=== PATIENT | male | born 1955 | race Caucasian/White ===

== ENCOUNTER 2024-05-08 17:51 | Inpatient (IN) ==
[2024-05-08] MEDS: ONDANSETRON INJ 2 MG/ML 2 ML VIAL IV STA ×2 (18:09→19:44)
[2024-05-08 18:29] LABS: Basophils # (auto) 0.06 K/uL (0.00-0.20); Basophils % (auto) 0.6 %; Eosinophils # (auto) 0.17 K/uL (0.00-0.50); Eosinophils % (auto) 1.6 %; Hematocrit (blood only) 47.1 % (42.0-52.0); Hemoglobin 16.3 g/dl (14.0-18.0); Immature Granulocytes # (auto) 0.02 K/uL (0.01-0.20); Immature Granulocytes % (auto) 0.2 %; Lymphocytes # (auto) 2.35 K/uL (1.20-3.40); Lymphocytes % (auto) 22.5 %; Mean Corpuscular Hemoglobin 29.4 pg (25.0-34.0); Mean Corpuscular Hgb Conc 34.6 g/dL (32.0-36.0); Mean Platelet Volume 9.8 fL (9.4-12.4); Monocytes # (auto) 1.41 K/uL (0.11-0.59); Monocytes % (auto) 13.5 %; Neutrophils # (auto) 6.43 K/uL (1.40-6.50); Neutrophils % (auto) 61.6 %; Platelet Count 196 K/uL (130-400); RDW Coefficient of Variation 12.2 % (11.5-14.5); RDW Standard Deviation 37.4 fL (36.4-46.3); Red Blood Count 5.54 M/uL (4.70-6.10); White Blood Count 10.44 K/ul (4.8-10.8)
[2024-05-08 18:46] LABS: Albumin Globulin Ratio 1.1 (0.9-2); Albumin Level 4.2 gm/dl (3.4-5.0); BUN Creatinine Ratio 9.1 (10-20); Calcium 9.5 mg/dl (8.6-10.3); Creatinine Clr Calc Pharmacy 45.6 ml/min; Est GFR (African American) 42.7 ml/min; Est GFR (Non-African American) 36.9 ml/min; Globulin 3.7 gm/dl (2.5-4.0); Potassium 4.4 mmol/L (3.5-5.1); Total Protein 7.9 gm/dl (6.0-8.3)
[2024-05-08 18:57] LABS: Appearance Urine Clear (Clear); Bacteria Urine Automated None Seen (None Seen); Bilirubin Urine Negative (Negative); Blood Urine 3+ (Negative); Cast Urine Automated 0-2 /lpf (0-2); Color Urine Yellow; Epithelial Cell Urine Auto 0-2 /hpf (0-2); Glucose Urine UA Negative (Negative); Ketones Urine Negative (Negative); Leukocyte Esterase Urine 1+ (Negative); Nitrite Urine Negative (Negative); Protein Urine 1+ (Negative); RBC Urine Automated >20 /hpf (0-2); Specific Gravity Urine 1.016 (1.000-1.030); Urobilinogen Urine Negative (Negative); WBC Urine Automated 0-5 /hpf (0-5)
[2024-05-08] MEDS: HYDROmorphone INJ 0.5 MG/0.5 ML SYR IV STA (19:41)
[2024-05-08] MEDS: SODIUM CHLORIDE 0.9% 1,000 ML IV ONE (19:41)
[2024-05-08] MEDS: KETOROLAC TROMETHAMINE 15 MG/ML VIAL IV ONE (19:41)
[2024-05-08] MEDS: TAMSULOSIN HCL 0.4 MG CAP PO ONE (19:44)
--- NOTE | 2024-05-08 20:04 | Urology Consultation ---
Date of Consultation May 08, 2024 Assessment & Plan (1) Nephrolithiasis: I discussed with the treating emergency room physician and the patient is being admitted on the hospital service. Due to the patient's noted calf pain lower extremity venous ultrasounds are going to be checked for further evaluation of this complaint From a urologic perspective we recommend the following: Provide analgesics Provide antiemetics Provide IV fluid for hydration Initiate Flomax for expulsive therapy At the present time the patient does not appear to have any signs of infection and therefore antibiotics do not need to be initiated I feel be acceptable for patient to have liquids for the present time but we will make him n.p.o. after midnight tonight and he will be reevaluated the morning of 05/09/2024 to determine if any cystoscopic intervention will be required The patient is urine to be strained and any kidney stones expelled should be safe for proper analysis The treating emergency room physician also notes that she has retrieved a CD with the patient's CT scans from his outside hospital. The CT scans are in the process of being uploaded to the [facility] physician group radiology service. Additional recommendations be forthcoming based on his clinical course as unfolds History of Present Illness Reason for Consultation: Nephrolithiasis History of Present Illness This is a 68-year-old male who presented the emergency department secondary to right-sided flank pain. Patient notes that he has been having pain for approximately 11 days. He says that he was seen at [facility] and [place], [place] on 3 occasions. He says he has had multiple CAT scans and the patient notes that he was told he had 5 mm kidney stone on the right-hand side. The patient notes that the pain originates in the right flank and radiates to the front of his abdomen. He has had nausea without vomiting. He has not had any fevers, shakes, or chills. He notes he is not having dysuria and is able to urinate without difficulty but has had intermittent hematuria since this began. He notes that he has had kidney stones in the past many years ago but was able to successfully pass the kidney stone without any procedural intervention. Since arrival to the hospital the patient has undergone labs which independent reviewed. A CBC revealed white blood cell count, hemoglobin, hematocrit, platelet count were all normal. Chemistry profile showed sodium is 134 with a normal potassium. BUN and creatinine were 17 and 1.8 respectively. Urinalysis did show 1+ leukocyte Estrace but was otherwise not indicative of infection. At the time of my interview the patient was resting comfortably bed he was in no distress. Concerning past medical history the patient suffers from arthritis and has a history of nephrolithiasis. Concerning social history the patient notes he does not smoke Patient History Social History Smoking Status: Never smoker Preferred Language: Kiswahili Review of Systems Review of Systems: All systems reviewed & are unremarkable except as noted in HPI & below Physical Exam Constitutional: WD/WN, vitals as above Eyes: Wears glasses ENMT: Ears: no hearing impairment and no external ear abnormality Mouth: no oropharynx abnormality Neck: trachea midline Respiratory: normal respiratory effort; no respiratory distress and no labored breathing Cardiovascular: Rate/Rhythm: regular rate and regular rhythm Gastrointestinal (Abdomen): Abdomen is soft without rigidity or rebound tenderness. The patient did have some slight pain with palpation however on the right-hand side. Musculoskeletal: The patient is noted to have calf tenderness bilaterally with the left being greater than the right. There is no lower extremity edema Skin: no rashes Neurologic: moves all extremities Psychiatric: A+Ox3, euthymic affect Genitourinary: No CVA tenderness to percussion on the left. The patient did have slight CVA tenderness with percussion on the right Results & Data Vital Signs (Past 12 Hours) Vital Signs Temp Pulse Resp BP Pulse Ox O2 Del Method 05/08/24 19:00 65 22 135/86 93 Room Air 05/08/24 18:42 65 24 158/82 H 93 05/08/24 18:40 65 05/08/24 17:42 36.6 C 65 18 171/83 H 95 Room Air PG Care Time/CCT Total # of Minutes Spent Total Time Spent with Patient: Total time spent is greater than 50% in coordination of care (as documented) at patient's floor/unit and/or counseling patient: Coding Level of Care Code 41857 INT INP/OBS CARE 3/75MIN Diagnoses Nephrolithiasis N20.0
--- NOTE | 2024-05-08 21:12 | History & Physical Report ---
Date of Service May 08, 2024 Assessment & Plan (1) Kidney stone: Plan: 68-year-old male with past med history of kidney stones more than 20 years ago, history of hyperlipidemia but not on medications presents with abdominal pain and found to be kidney stone and TRISTAN. Patient states about 11 days ago on Saturday went to [facility] because of the pain and found to have kidney stone and was discharged home on pain medications and again last Saturday a week ago went with the same problem and was discharged again and told to follow as outpatient. Today again had a lot of pain in lower abdomen with nausea and vomiting and he went to [facility] again was given fluids and pain medication and as there was no urology coverage until next Saturday,patient did not want to stay there for 4 days so he came here. CT scan was done at [facility]. As per patient CAT scan showed a 5 mm right ureteral stone. Patient states initially he had some blood in urine.. Denies fevers. Micturating okay. No burning micturition. Appetite is down. Not eating much. Currently has Pain in the umbilical region radiating to the back. When the pain is severe also having some chest discomfort. Denies any shortness of breath. And today also having bilateral calf pains. No headache. Sometimes gets dizziness. No blurred vision. No runny nose or sore throat but no cough. Currently hemodynamics are okay. kidney stone right side 5 mm appreciate urology input will keep him n.p.o., IV fluids, IV antiemetics as needed, IV pain meds as needed close monitor TRISTAN creatinine 1.8 we do not have baseline labs avoid nephrotoxic agents follow repeat labs in a.m. nonocclusive DVT in the right distal popliteal vein patient was complaining of bilateral calf pains starting on IV heparin needs follow-up chest pains patient seen getting chest tightness when abdominal pain is severe. Will follow EKG, serial cardiac enzymes and echo hyperlipidemia patient states not taking any medications will follow lipid profile DVT prophylaxis IV heparin disposition med/telemetry full code. History of Present Illness Chief Complaint: Kidney stone, TRISTAN Primary Care Provider: Gian Hamilton MD 68-year-old male with past med history of kidney stones more than 20 years ago, history of hyperlipidemia but not on medications presents with abdominal pain and found to be kidney stone and TRISTAN. Patient states about 11 days ago on Saturday went to [facility] because of the pain and found to have kidney stone and was discharged home on pain medications and again last Saturday a week ago went with the same problem and was discharged again and told to follow as outpatient. Today again had a lot of pain in lower abdomen with nausea and vomiting and he went to [facility] again was given fluids and pain medication and as there was no urology coverage until next Saturday,patient did not want to stay there for 4 days so he came here. CT scan was done at [facility]. As per patient CAT scan showed a 5 mm right ureteral stone. Patient states initially he had some blood in urine.. Denies fevers. Micturating okay. No burning micturition. Appetite is down. Not eating much. Currently has Pain in the umbilical region radiating to the back. When the pain is severe also having some chest discomfort. Denies any shortness of breath. And today also having bilateral calf pains. No headache. Sometimes gets dizziness. No blurred vision. No runny nose or sore throat but no cough. Currently hemodynamics are okay. Past medical history. As mentioned above past surgical history. knee scopes. Appendectomy. Social history. No smoking. No alcohol. No drug use. Family history. Both grandma's father's had CHF. Both her parents had kidney stones. Both parents lived into their 90s. Allergies Allergy/AdvReac Type Severity Reaction Status Date / Time pollen extracts Allergy Unknown "Seasonal Verified 05/08/24 21:44 allergies" -RUNNY NOSE, WATERY EYES, SNEEZE Home Medications Medication Instructions Recorded Confirmed Type hydrocodone 5 mg-acetaminophen 325 1 tab PO Q6 PRN Pain 05/08/24 05/08/24 History mg tablet ondansetron 4 mg disintegrating 4 mg PO Q6 PRN Nausea 05/08/24 05/08/24 History tablet tamsulosin 0.4 mg capsule 0.4 mg PO DAILY PRN .. 05/08/24 05/08/24 History Past Med/Surg History Problem List (Updated 05/08/24 @ 21:28 by Andrade Gómez MD) Kidney stone Nephrolithiasis Social History Smoking Status: Never smoker Hx Alcohol Use: Yes Alcohol type: beer Hx Substance Use: No Preferred Language: Gambian Communication Ability: Effective Resident Care Provider Required: No Beliefs That Will Affect Care: None Current Living Situation: Family Other Information That Helps Us Care for You: No Feels Safe at Home: Yes Safety Concerns: Feels Safe At This Time Assistive Devices: None Review of Systems Review of Systems: All systems reviewed & are unremarkable except as noted in HPI & below Physical Exam Physical Exam: General- Not in distress Head- atraumatic Eyes- PERRL. ENT- oropharynx clear Neck- supple, no JVD. Lungs- clear to auscultation no wheezing or crackles. Heart- regular rate and rhythm; ESM?, no gallop. Abdomen- normal bowel sounds, soft, Mild tenderness in periumbilical region no distension Extremities- no pretibial edema, mild b/l calf tenderness, no erythema seen Neuro- alert, oriented PERRL, no facial palsy; no dysarthria; moves extremities Results & Data Results & Data Vital Signs (Past 12 Hours) Vital Signs Temp Pulse Resp BP Pulse Ox O2 Del Method 05/08/24 19:00 65 22 135/86 93 Room Air 05/08/24 18:42 65 24 158/82 H 93 05/08/24 18:40 65 05/08/24 17:42 36.6 C 65 18 171/83 H 95 Room Air Diagnostic Findings Laboratory Results WBC 10.44 K/ul (4.8-10.8) 05/08/24 18:06 RBC 5.54 M/uL (4.70-6.10) 05/08/24 18:06 Hgb 16.3 g/dl (14.0-18.0) 05/08/24 18:06 Hct 47.1 % (42.0-52.0) 05/08/24 18:06 MCV 85.0 fL (80.0-100.0) 05/08/24 18:06 MCH 29.4 pg (25.0-34.0) 05/08/24 18:06 MCHC 34.6 g/dL (32.0-36.0) 05/08/24 18:06 RDW Std Deviation 37.4 fL (36.4-46.3) 05/08/24 18:06 RDW Coeff of Joanna 12.2 % (11.5-14.5) 05/08/24 18:06 Plt Count 196 K/uL (130-400) 05/08/24 18:06 MPV 9.8 fL (9.4-12.4) 05/08/24 18:06 Immature Gran % (Auto) 0.2 % 05/08/24 18:06 Neut % (Auto) 61.6 % 05/08/24 18:06 Lymph % (Auto) 22.5 % 05/08/24 18:06 [place] % (Auto) 13.5 % 05/08/24 18:06 Eos % (Auto) 1.6 % 05/08/24 18:06 Baso % (Auto) 0.6 % 05/08/24 18:06 Neut # (Auto) 6.43 K/uL (1.40-6.50) 05/08/24 18:06 Lymph # (Auto) 2.35 K/uL (1.20-3.40) 05/08/24 18:06 [place] # (Auto) 1.41 K/uL (0.11-0.59) H 05/08/24 18:06 Eos # (Auto) 0.17 K/uL (0.00-0.50) 05/08/24 18:06 Baso # (Auto) 0.06 K/uL (0.00-0.20) 05/08/24 18:06 Immature Gran # (Auto) 0.02 K/uL (0.01-0.20) 05/08/24 18:06 Sodium 134 mmol/L (136-145) L 05/08/24 18:06 Potassium 4.4 mmol/L (3.5-5.1) 05/08/24 18:06 Chloride 101 mmol/L (98-107) 05/08/24 18:06 Carbon Dioxide 27 mmol/L (21-32) 05/08/24 18:06 Anion Gap 6 (3-11) 05/08/24 18:06 BUN 17 mg/dl (6-23) 05/08/24 18:06 Creatinine 1.86 mg/dl (0.6-1.4) H 05/08/24 18:06 Est Cr Clr Drug Dosing 45.6 ml/min 05/08/24 18:06 Est GFR ( Amer) 42.7 ml/min 05/08/24 18:06 Est GFR (Non-Af Amer) 36.9 ml/min 05/08/24 18:06 BUN/Creatinine Ratio 9.1 (10-20) L 05/08/24 18:06 Glucose 104 mg/dl (70-99(Fasting)) H 05/08/24 18:06 Calcium 9.5 mg/dl (8.6-10.3) 05/08/24 18:06 Total Bilirubin 1.0 mg/dl (0.2-1.0) 05/08/24 18:06 AST 19 U/L (13-39) 05/08/24 18:06 ALT 16 U/L (7-52) 05/08/24 18:06 Alkaline Phosphatase 80 U/L (34-104) 05/08/24 18:06 Total Protein 7.9 gm/dl (6.0-8.3) 05/08/24 18:06 Albumin 4.2 gm/dl (3.4-5.0) 05/08/24 18:06 Globulin 3.7 gm/dl (2.5-4.0) 05/08/24 18:06 Albumin/Globulin Ratio 1.1 (0.9-2) 05/08/24 18:06 Urine Color Yellow 05/08/24 18:38 Urine Appearance Clear (Clear) 05/08/24 18:38 Urine pH 6.0 (4.5-7.5) 05/08/24 18:38 Ur Specific [place] 1.016 (1.000-1.030) 05/08/24 18:38 Urine Protein 1+ (Negative) H 05/08/24 18:38 Urine Glucose (UA) Negative (Negative) 05/08/24 18:38 Urine Ketones Negative (Negative) 05/08/24 18:38 Urine Blood 3+ (Negative) H 05/08/24 18:38 Urine Nitrite Negative (Negative) 05/08/24 18:38 Urine Bilirubin Negative (Negative) 05/08/24 18:38 Urine Urobilinogen Negative (Negative) 05/08/24 18:38 Ur Leukocyte Esterase 1+ (Negative) H 05/08/24 18:38 Urine WBC (Auto) 0-5 /hpf (0-5) 05/08/24 18:38 Urine RBC (Auto) >20 /hpf (0-2) H 05/08/24 18:38 U Hyaline Cast (Auto) 0-2 /lpf (0-2) 05/08/24 18:38 U Epithel Cells (Auto) 0-2 /hpf (0-2) 05/08/24 18:38 Urine Bacteria (Auto) None Seen (None Seen) 05/08/24 18:38 Impressions Venous Doppler Study 05/08/24 19:52 US venous doppler LE BI CLINICAL HISTORY: DVT TECHNIQUE: Right lower extremity real-time compression venous ultrasound with Color Doppler imaging. Utilizing real-time ultrasonic imaging multiple real time high-resolution ultrasonic images with compression and noncompression maneuvers of the deep venous system in addition to color doppler imaging were performed from the common femoral vein through the proximal calf veins. COMPARISON: None available at the time of this dictation. FINDINGS/IMPRESSION: Nonocclusive thrombus is in the distal right popliteal vein. No superficial venous thrombosis is identified. ACT 112: Negative or not required by law. Electronically signed by: Gordo Kowalski M.D. 05/08/2024 9:18 PM Code Status & VTE Plan VTE Prophylaxis Plan VTE Prophylaxis will be ordered: Yes
--- NOTE | 2024-05-08 21:20 | Ultrasound Report ---
US venous doppler LE BI CLINICAL HISTORY: DVT TECHNIQUE: Right lower extremity real-time compression venous ultrasound with Color Doppler imaging. Utilizing real-time ultrasonic imaging multiple real time high-resolution ultrasonic images with comp ression and noncompression maneuvers of the deep venous system in addition to color doppler imaging w ere performed from the common femoral vein through the proximal calf veins. COMPARISON: None available at the time of this dictation. FINDINGS/IMPRESSION: Nonocclusive thrombus is in the distal right popliteal vein. No superficial venous thrombosis is iden tified. ACT 112: Negative or not required by law. Electronically signed by: Gordo Kowalski M.D. 05/08/2024 9:18 PM
[2024-05-08] MEDS ORDERED: Heparin IV Adult Wt-Based Standard w/ INITIAL Bolus Protocol IV STA (21:37)
[2024-05-08] MEDS ORDERED: HEPARIN SOD (PORCINE) 1000 UNIT/ML IV ONE (21:52)
[2024-05-08] MEDS ORDERED: HEPARIN SODIUM/DEXTROSE 25,000 UNITS/500 ML BAG IV SCH (22:00)
[2024-05-08] MEDS ORDERED: ACETAMINOPHEN 325 MG TAB PO PRN (22:38)
[2024-05-08] MEDS: SODIUM CHLORIDE 0.9% 1,000 ML IV SCH (22:55)
[2024-05-08] MEDS: HYDROmorphone INJ 0.5 MG/0.5 ML SYR IV PRN (23:23)
[2024-05-08 23:50] LABS: Partial Thromboplastin Time 27 Seconds (21-31); Prothrombin Time 10.4 Seconds (9.0-12.0)
[2024-05-09] MEDS: HEPARIN SODIUM/DEXTROSE 25,000 UNITS/500 ML BAG IV SCH ×2 (00:04→00:31)
[2024-05-09] MEDS: Heparin IV Adult Wt-Based Standard *NO* INITIAL Bolus Protocol IV STA ×2 (00:08)
[2024-05-09] MEDS: HYDROmorphone INJ 0.5 MG/0.5 ML SYR IV PRN (05:27)
[2024-05-09 06:35] LABS: Basophils # (auto) 0.04 K/uL (0.00-0.20); Basophils % (auto) 0.5 %; Eosinophils # (auto) 0.18 K/uL (0.00-0.50); Eosinophils % (auto) 2.1 %; Hematocrit (blood only) 42.4 % (42.0-52.0); Hemoglobin 14.4 g/dl (14.0-18.0); Immature Granulocytes # (auto) 0.02 K/uL (0.01-0.20); Immature Granulocytes % (auto) 0.2 %; Lymphocytes % (auto) 23.6 %; Mean Corpuscular Hemoglobin 29.3 pg (25.0-34.0); Mean Corpuscular Volume 86.2 fL (80.0-100.0); Monocytes # (auto) 0.99 K/uL (0.11-0.59); Monocytes % (auto) 11.7 %; Neutrophils # (auto) 5.24 K/uL (1.40-6.50); Neutrophils % (auto) 61.9 %; Platelet Count 170 K/uL (130-400); RDW Coefficient of Variation 12.3 % (11.5-14.5); RDW Standard Deviation 38.9 fL (36.4-46.3); Red Blood Count 4.92 M/uL (4.70-6.10); White Blood Count 8.47 K/ul (4.8-10.8)
[2024-05-09] MEDS: HYDROmorphone INJ 0.5 MG/0.5 ML SYR IV STA (06:47)
[2024-05-09 06:52] LABS: BUN Creatinine Ratio 9.8 (10-20); Calcium 8.3 mg/dl (8.6-10.3); Chol HDL Ratio 4.7 (0-5); Creatinine Clr Calc Pharmacy 46.8 ml/min; Est GFR (African American) 43.6 ml/min; Est GFR (Non-African American) 37.6 ml/min; Magnesium 2.1 mg/dl (1.7-2.4); Potassium 4.8 mmol/L (3.5-5.1)
[2024-05-09 06:58] LABS: ANTI-Xa, UFH(UnfractionatedHep 0.34 IU/ml (0.3-0.7); Troponin I High Sensitivity 6.6 pg/ml (0-20)
[2024-05-09] MEDS ORDERED: ACETAMINOPHEN 1,000 MG/100 ML VIAL IV PRN (07:50)
[2024-05-09] MEDS ORDERED: POLYETHYLENE (MIRALAX) 17 GM PACK PO PRN (07:54)
--- NOTE | 2024-05-09 08:34 | XRay Report ---
XR KUB/Abdomen 1 view CLINICAL HISTORY: R flank pain, known stone TECHNIQUE: 1 view of the abdomen was obtained. Comparison: Comparison is made to CT abdomen pelvis 05/08/2024 FINDINGS: Bilateral nephrolithiasis is seen. In addition there is a right ureteral stone. Degenerative changes are seen in the visualized skeleton. The bowel gas pattern is nonobstructive. A moderate amount of st ool is noted within the large bowel. IMPRESSION: Bilateral nephrolithiasis is seen, in addition there is a right ureteral stone. It is grossly similar to prior CT in position. ACT 112: Negative or not required by law. Electronically signed by: Gordo Kowalski M.D. 05/09/2024 8:33 AM
[2024-05-09] MEDS ORDERED: PHENAZOPYRIDINE HCL 200 MG TAB PO PRN (08:51)
--- NOTE | 2024-05-09 08:53 | Electrocardiogram Report ---
Test Reason : Blood Pressure : / mmHG Vent. Rate : 066 BPM Atrial Rate : 066 BPM P-R Int : 170 ms QRS Dur : 100 ms QT Int : 402 ms P-R-T Axes : 052 -04 009 degrees QTc Int : 421 ms Normal sinus rhythm Normal ECG When compared with ECG of 13-MAY-2015 14:17, No significant change was found Confirmed by Yariel Eller ([id number]) on 05/09/2024 8:53:26 AM Referred By: REFERRED SELF Confirmed By:Yariel Eller
--- NOTE | 2024-05-09 09:55 | Emergency Department Note ---
Impression & Plan Colic, ureteral, Intractable pain ED Provider Note CHIEF COMPLAINT: Right flank pain HISTORY OF PRESENT ILLNESS: This 68-year-old male patient with no significant past medical history presents to the emergency department complaints right flank pain. Patient had symptoms often on for about a week. He presented to an outside facility on 3 separate occasions. He states he had a CT scan visit. Patients had no fevers, chills, chest pain or shortness of breath. He States he had no infection in the urine but there was blood at the outside hospital. He was told there was no urologist at their facility for four more days. Patient left their facility by private vehicle and "an ambulance met us on the way." Patient presents with images on CD. REVIEW OF SYSTEMS: A review of systems was performed with positives and pertinent negatives listed in the history of present illness. 10 systems were reviewed and are otherwise negative. ALLERGIES: see below MEDICATIONS: see below PMH: see below SOCIAL HISTORY: see below DDx: Renal calculus, obstructing stone, UTI/ pyelo, radiculopathy, muscular strain among others PHYSICAL EXAM: Vital signs reviewed. General: Well-appearing 68 yo male patient, in some discomfort. HEENT: No scleral icterus, PERRLA, neck supple. We make his membranes. Cardiovascular: Regular rate and rhythm, no extra sounds. Pulmonary: Clear to auscultation bilaterally, normal work of breathing. Abdomen: Soft, nontender, nondistended, positive bowel sounds. Musculoskeletal: Atraumatic, no peripheral edema. No CVA tenderness. Neurologic: Patient awake alert and oriented x 3, speech is clear Skin: Warm, dry, no rash EMERGENCY DEPARTMENT COURSE/MDM: This patient was evaluated and appeared to be a nursing distress. IV access was obtained and laboratory work was drawn. The patient was placed on the machine pan greaser and noted to be sinus rhythm. Patient was hydrated with normal saline solution, given IV Zofran x2, toradol, dilaudid for his pain. He had taken flomax 24 hours ago, therefore was redosed this evening. Patient provided a CD with his images from the outside hospital. These were loaded into our radiology system. KUB was performed in reveals bilateral nephrolithiasis and a right ureteral stone. UA is significant for blood. Creatinine is mildly elevated at 1.8. The patient's case was discussed with the hospitalist Dr. Palapu as well as Urology for consultation. I do not think the patient will be successful with a discharge for outpatient management as he had been in the ED three times this week already the same issue. Patient was advised of the findings and plan and agreed to admission. MONITORING: An order for cardiac monitoring was placed and the patient is noted to be in a NSR at 65 beats per minute. RADIOLOGY:KUB of the abdomen above per radiology: Bilateral nephrolithiasis is seen, in addition there is a right ureteral stone. It is grossly similar to prior CT in position. EKG: to my interpretation reveals NSR at 66 bpm, Normal ST segments. No PVC, no PAC. QTC of 421. DISPOSITION:Admit Past Med/Surg History Problem List (Updated 05/09/24 @ 20:07 by Katheryn Mckeon MD) Intractable pain (Acute) Colic, ureteral (Acute) Medical History (Updated 05/09/24 @ 20:07 by Katheryn Mckeon MD) DVT (deep venous thrombosis) Kidney stone Nephrolithiasis Social History Smoking Status: Never smoker Hx Alcohol Use: Yes Alcohol type: beer Hx Substance Use: No Preferred Language: Serbian Communication Ability: Effective Wildlife Policy Professional Required: No Beliefs That Will Affect Care: None Current Living Situation: Family Feels Safe at Home: Yes Assistive Devices: None Allergies Allergies Allergy/AdvReac Type Severity Reaction Status Date / Time pollen extracts Allergy Unknown "Seasonal Verified 05/08/24 21:44 allergies" -RUNNY NOSE, WATERY EYES, SNEEZE Home Meds Home Medications Medication Instructions Recorded Confirmed hydrocodone 5 mg-acetaminophen 325 1 tab PO Q6 PRN Pain 05/08/24 05/08/24 mg tablet ondansetron 4 mg disintegrating 4 mg PO Q6 PRN Nausea 05/08/24 05/08/24 tablet tamsulosin 0.4 mg capsule 0.4 mg PO DAILY PRN .. 05/08/24 05/08/24 Results & Data (ED) Vital Signs Vital Signs - 24 hr 05/08/24 17:42 05/08/24 18:40 05/08/24 18:42 Temperature 36.6 C Temperature Source Temporal Artery Scan Pulse Rate 65 65 65 Pulse Rate from SpO2 Sensor 65 Respiratory Rate 18 24 Blood Pressure 171/83 H 158/82 H Blood Pressure Mean 112 107 Pulse Oximetry 95 93 Oxygen Delivery Method Room Air Sepsis Recent Fever Within 48 Hours No Sepsis New/Unexplained Change in Mental Status N/A Sepsis Action Taken by Nursing No Action Required 05/08/24 19:00 Temperature Temperature Source Pulse Rate 65 Pulse Rate from SpO2 Sensor 65 Respiratory Rate 22 Blood Pressure 135/86 Blood Pressure Mean 102 Pulse Oximetry 93 Oxygen Delivery Method Room Air Sepsis Recent Fever Within 48 Hours Sepsis New/Unexplained Change in Mental Status Sepsis Action Taken by Shelter Medications Current Medication List: was personally reviewed by me Laboratory Data Attestation: I reviewed the patient's lab results. 05/09/24 06:10 05/09/24 06:10 Lab Results 05/08/24 05/08/24 Range/Units 18:06 18:38 WBC 10.44 (4.8-10.8) K/ul RBC 5.54 (4.70-6.10) M/uL Hgb 16.3 (14.0-18.0) g/dl Hct 47.1 (42.0-52.0) % MCV 85.0 (80.0-100.0) fL MCH 29.4 (25.0-34.0) pg MCHC 34.6 (32.0-36.0) g/dL RDW Std Deviation 37.4 (36.4-46.3) fL RDW Coeff of Joanna 12.2 (11.5-14.5) % Plt Count 196 (130-400) K/uL MPV 9.8 (9.4-12.4) fL Immature Gran % (Auto) 0.2 % Neut % (Auto) 61.6 % Lymph % (Auto) 22.5 % Lee % (Auto) 13.5 % Eos % (Auto) 1.6 % Baso % (Auto) 0.6 % Neut # (Auto) 6.43 (1.40-6.50) K/uL Lymph # (Auto) 2.35 (1.20-3.40) K/uL Lee # (Auto) 1.41 H (0.11-0.59) K/uL Eos # (Auto) 0.17 (0.00-0.50) K/uL Baso # (Auto) 0.06 (0.00-0.20) K/uL Immature Gran # (Auto) 0.02 (0.01-0.20) K/uL PT 10.4 (9.0-12.0) Seconds INR 1.0 (0.9-1.1) APTT 27 (21-31) Seconds PTT Ratio 1.0 Sodium 134 L (136-145) mmol/L Potassium 4.4 (3.5-5.1) mmol/L Chloride 101 (98-107) mmol/L Carbon Dioxide 27 (21-32) mmol/L Anion Gap 6 (3-11) BUN 17 (6-23) mg/dl Creatinine 1.86 H (0.6-1.4) mg/dl Est Cr Clr Drug Dosing 45.6 ml/min Est GFR ( Amer) 42.7 ml/min Est GFR (Non-Af Amer) 36.9 ml/min BUN/Creatinine Ratio 9.1 L (10-20) Glucose 104 H (70-99(Fasting)) mg/dl Calcium 9.5 (8.6-10.3) mg/dl Total Bilirubin 1.0 (0.2-1.0) mg/dl AST 19 (13-39) U/L ALT 16 (7-52) U/L Alkaline Phosphatase 80 (34-104) U/L Troponin I High Sens 6.0 (0-20) pg/ml Total Protein 7.9 (6.0-8.3) gm/dl Albumin 4.2 (3.4-5.0) gm/dl Globulin 3.7 (2.5-4.0) gm/dl Albumin/Globulin Ratio 1.1 (0.9-2) Urine Color Yellow Urine Appearance Clear (Clear) Urine pH 6.0 (4.5-7.5) Ur Specific [place] 1.016 (1.000-1.030) Urine Protein 1+ H (Negative) Urine Glucose (UA) Negative (Negative) Urine Ketones Negative (Negative) Urine Blood 3+ H (Negative) Urine Nitrite Negative (Negative) Urine Bilirubin Negative (Negative) Urine Urobilinogen Negative (Negative) Ur Leukocyte Esterase 1+ H (Negative) Urine WBC (Auto) 0-5 (0-5) /hpf Urine RBC (Auto) >20 H (0-2) /hpf U Hyaline Cast (Auto) 0-2 (0-2) /lpf U Epithel Cells (Auto) 0-2 (0-2) /hpf Urine Bacteria (Auto) None Seen (None Seen) Administered Medications Sodium Chloride (Nss) 1,000 mls @ 75 mls/hr IV .[id number] CORNELIO Stop: 06/07/24 22:37 Last Admin: 05/09/24 05:28 Dose: 125 mls/hr Documented By: Infusion: 05/09/24 05:28 Dose: Infused Documented By: Admin: 05/08/24 22:55 Dose: 125 mls/hr Documented By: GERALDINE Heparin Sodium/Dextrose (Heparin Sodium/Dextrose) 25,000 units in 500 mls @ 30 mls/hr IV .[id number] CORNELIO; Protocol Stop: 06/07/24 23:14 Last Titration: 05/09/24 07:10 Dose: 1,500 units/hr, 30 mls/hr Documented By: CORIE Co-signed By: GERALDINE Admin: 05/09/24 00:04 Dose: 1,500 units/hr, 30 mls/hr Documented By: GERALDINE Co-signed By: EMBER Discontinued Medications Heparin Sodium/Dextrose (Heparin Iv Adult Wt-Based Standard *No* Initial Bolus Protocol) 1 each IV ONE STA; Protocol Stop: 05/08/24 21:46 Last Admin: 05/09/24 00:08 Dose: Not Given Documented By: GERALDINE Heparin Sodium/Dextrose (Heparin Iv Adult Wt-Based Standard *No* Initial Bolus Protocol) 1 each IV ONE STA; Protocol Stop: 05/08/24 23:00 Last Admin: 05/09/24 00:08 Dose: Not Given Documented By: GERALDINE Hydromorphone HCl (Hydromorphone Inj 0.5 Mg/0.5 Ml Syr) 0.5 mg IV NOW STA Stop: 05/08/24 18:45 Last Admin: 05/08/24 19:41 Dose: 0.5 mg Documented By: BENI Hydromorphone HCl (Hydromorphone Inj 0.5 Mg/0.5 Ml Syr) 0.5 mg IV Q4 PRN PRN Reason: Severe Pain (Scale 7, 8, 9,10) Stop: 05/22/24 22:37 Last Admin: 05/09/24 05:27 Dose: 0.5 mg Documented By: GERALDINE Hydromorphone HCl (Hydromorphone Inj 0.5 Mg/0.5 Ml Syr) 0.25 mg IV Q4H PRN PRN Reason: Moderate Pain (Scale 4, 5, 6) Stop: 05/22/24 22:37 Last Admin: 05/08/24 23:23 Dose: 0.25 mg Documented By: GERALDINE Hydromorphone HCl (Hydromorphone Inj 0.5 Mg/0.5 Ml Syr) 0.5 mg IV NOW STA Stop: 05/09/24 06:43 Last Admin: 05/09/24 06:47 Dose: 0.5 mg Documented By: GERALDINE Sodium Chloride (Nss) 1,000 mls @ 999 mls/hr IV .[id number] ONE Stop: 05/08/24 19:47 Last Infusion: 05/08/24 20:39 Dose: Infused Documented By: Admin: 05/08/24 19:41 Dose: 999 mls/hr Documented By: BENI Heparin Sodium/Dextrose (Heparin Sodium/Dextrose) 25,000 units in 500 mls @ 30 mls/hr IV .[id number] [facility]; Protocol Stop: 06/07/24 21:59 Last Admin: 05/09/24 00:31 Dose: Not Given Documented By: GERALDINE Ketorolac Tromethamine (Ketorolac Tromethamine 15 Mg/Ml Vial) 10 mg IV NOW ONE Stop: 05/08/24 18:46 Last Admin: 05/08/24 19:41 Dose: 10 mg Documented By: BENI Ondansetron HCl (Ondansetron Inj 2 Mg/Ml 2 Ml Vial) 4 mg IV NOW STA Stop: 05/08/24 18:08 Last Admin: 05/08/24 18:09 Dose: 4 mg Documented By: DIONISIO Ondansetron HCl (Ondansetron Inj 2 Mg/Ml 2 Ml Vial) 4 mg IV NOW STA Stop: 05/08/24 18:45 Last Admin: 05/08/24 19:44 Dose: Not Given Documented By: BENI Tamsulosin HCl (Tamsulosin Hcl 0.4 Mg Cap) 0.4 mg PO NOW ONE Stop: 05/08/24 18:48 Last Admin: 05/08/24 19:44 Dose: 0.4 mg Documented By: BENI Imaging Data Radiologist's Impression: KUB X-Ray 05/08/24 18:44 XR KUB/Abdomen 1 view CLINICAL HISTORY: R flank pain, known stone TECHNIQUE: 1 view of the abdomen was obtained. Comparison: Comparison is made to CT abdomen pelvis 05/08/2024 FINDINGS: Bilateral nephrolithiasis is seen. In addition there is a right ureteral stone. Degenerative changes are seen in the visualized skeleton. The bowel gas pattern is nonobstructive. A moderate amount of stool is noted within the large bowel. IMPRESSION: Bilateral nephrolithiasis is seen, in addition there is a right ureteral stone. It is grossly similar to prior CT in position. ACT 112: Negative or not required by law. Electronically signed by: Gordo Kowalski M.D. 05/09/2024 8:33 AM Discharge Plan Visit Data Chief Complaint: Flank Pain Stated Complaint: R SIDE PAIN, KIDNEY PAIN ED Provider: Katheryn Mckeon Discharge Problem: Colic, ureteral, Intractable pain Patient Disposition: Admitted As Inpatient Discharge Instructions Interventions: ED Discharge Assessment Last Done: 05/08/24 21:25
--- NOTE | 2024-05-09 09:56 | Urology Progress Note ---
Date of Service May 09, 2024 Assessment & Plan (1) Kidney stone: (2) DVT (deep venous thrombosis): Plan Right ureteral stone; DVT Lengthy discussion about options He has numerous left renal calculi as well. I discussed that I would not perform stone treatment today but I could offer a stent to alleviate pain on the right side I discussed the particular risks of his DVT in lithotomy position and potential mobilization during surgery I would keep him on his heparin drip through surgery I think stent placement can be performed safely and hopefully alleviate the acute need for surgical intervention and allow treatment of his DVT before definitive treatment of his stones in the future Admission and Anticipated Discharge Date Admission Date: May 08, 2024 Subjective Patient seen numerous times this week in the [facility] right ureteral stone with symptoms Continuously sent back out without any evaluation or treatment from urology Ultimately became frustrated and traveled to our emergency room for admission After admission he was complaining of some calf pain and found to have a non- oclusive popliteal DVT He is currently on a heparin drip he is hemodynamically stable with a white count of 8.4 Creatinine 1.8slightly elevated from baseline Continues to complain about significant right lower back and flank pain He does have a long history of kidney stones but reports that he is avoided surgery thus far He has never had a stent in the past Physical Exam Constitutional: well developed and well nourished Neck: neck nontender Respiratory: normal respiratory effort; no respiratory distress and does not use accessory muscles Cardiovascular: Rate/Rhythm: regular rate Vessels: radial pulses present Extremities: no edema Gastrointestinal (Abdomen): Inspection/Auscultation: abdomen normal to inspection Percussion/Palpation: abdomen soft; abdomen nontender and no guarding Musculoskeletal: Head/Neck/Chest: normocephalic and head atraumatic Extremities: extremities normal to inspection Skin: no rashes and no lesions Trauma: no evidence of skin trauma Neurologic: awake; not obtunded Speech / Cognition: normal speech Motor/Sensory: no tremor Psychiatric: Orientation: alert and oriented x 3 Genitourinary: no CVA tenderness Lymphatic: no lymphadenopathy Results & Data Vital Signs (Past 12 Hours) Vital Signs Temp Pulse Pulse Pulse Resp BP Pulse Ox 05/09/24 07:40 36.8 C 66 16 151/87 H 95 05/09/24 06:59 66 05/09/24 03:01 37.1 C 64 16 152/83 H 95 05/08/24 22:53 66 05/08/24 22:38 36.8 C 65 16 178/91 H 94 05/08/24 22:15 66 16 97 O2 Del Method 05/09/24 07:40 Room Air 05/09/24 06:59 05/09/24 03:01 Room Air 05/08/24 22:53 05/08/24 22:38 Room Air 05/08/24 22:15 Room Air PG Care Time/CCT Total # of Minutes Spent Total Time Spent with Patient: Total time spent is greater than 50% in coordination of care (as documented) at patient's floor/unit and/or counseling patient: Coding Level of Care Code 54904 SUB INP/OBS CARE 3/50MIN Diagnoses Kidney stone N20.0 DVT (deep venous thrombosis) I82.409
--- NOTE | 2024-05-09 10:03 | Anesthesiology Consultation ---
Date of Service May 09, 2024 Assessment & Plan Chart Review Chart Review: Acceptable Risk for Surgery and Patient NOT seen in Pre Admission Testing History Surgery Operation Date: 05/09/24 09:35 Proposed Procedures p Cystoscopy - John Rasheed MD s Ureteral Stent Insertion/Removal(Right) - John Rasheed MD Height/Weight Height: 5 ft 9 in Weight: 102.3 kg Allergies Allergy/AdvReac Type Severity Reaction Status Date / Time pollen extracts Allergy Unknown "Seasonal Verified 05/08/24 21:44 allergies" -RUNNY NOSE, WATERY EYES, SNEEZE Medications Home Medications Medication Instructions Recorded Confirmed Last Taken hydrocodone 5 mg-acetaminophen 325 1 tab PO Q6 PRN Pain 05/08/24 05/08/24 05/08/24 16:00 mg tablet ondansetron 4 mg disintegrating 4 mg PO Q6 PRN Nausea 05/08/24 05/08/24 Unknown tablet tamsulosin 0.4 mg capsule 0.4 mg PO DAILY PRN .. 05/08/24 05/08/24 Unknown Active Medications Generic Name Dose Route Start Last Admin Trade Name Freq PRN Reason Stop Dose Admin Sodium Chloride 1,000 mls @ 75 mls/hr 05/08/24 22:38 05/09/24 05:28 Nss IV 06/07/24 22:37 125 mls/hr .[id number] CORNELIO Administration Heparin Sodium/Dextrose 25,000 units in 500 mls @ 30 mls/hr 05/08/24 23:15 05/09/24 07:10 Heparin Sodium/Dextrose IV 06/07/24 23:14 1,500 units/hr .[id number] CORNELIO 30 mls/hr Titration Protocol 1,500 UNITS/HR Past Medical History Medical History (Updated 05/09/24 @ 10:03 by Linwood Gao MD) DVT (deep venous thrombosis) Kidney stone Nephrolithiasis Social History Smoking Status: Never smoker Hx Alcohol Use: Yes Alcohol type: beer alcohol intake frequency: a few times a month Hx Substance Use: No substance use type: does not use Physical Exam Vital Signs Last Vital Signs Temp 36.8 C 05/09/24 07:40 Pulse 66 05/09/24 07:40 Resp 16 05/09/24 07:40 BP 151/87 H 05/09/24 07:40 Pulse Ox 95 07/06/24 07:40 O2 Del Method Room Air 05/09/24 07:40 Constitutional WD/WN, vitals as above well developed and well nourished ENMT Ears: no hearing impairment and no external ear abnormality Mouth: no oropharynx abnormality Neck trachea midline; neck nontender Respiratory normal respiratory effort; no respiratory distress, no labored breathing and does not use accessory muscles Cardiovascular Rate/Rhythm: regular rate and regular rhythm Vessels: radial pulses present Extremities: no edema Gastrointestinal (Abdomen) Inspection/Auscultation: abdomen normal to inspection Percussion/Palpation: abdomen soft; abdomen nontender and no guarding Musculoskeletal Head/Neck/Chest: normocephalic and head atraumatic Extremities: extremities normal to inspection Skin no rashes and no lesions Trauma: no evidence of skin trauma Neurologic moves all extremities and awake; not obtunded Speech / Cognition: normal speech Motor/Sensory: no tremor Psychiatric A+Ox3, euthymic affect Orientation: alert and oriented x 3 Genitourinary no CVA tenderness Lymphatic no lymphadenopathy Testing Laboratory Results 05/09/24 06:10 05/09/24 06:10 PT 10.4 Seconds (9.0-12.0) 05/08/24 18:06 INR 1.0 (0.9-1.1) 05/08/24 18:06 APTT 27 Seconds (21-31) 05/08/24 18:06 Urine Color Yellow 05/08/24 18:38 Urine Appearance Clear (Clear) 05/08/24 18:38 Urine pH 6.0 (4.5-7.5) 05/08/24 18:38 Ur Specific [place] 1.016 (1.000-1.030) 05/08/24 18:38 Urine Protein 1+ (Negative) H 05/08/24 18:38 Urine Glucose (UA) Negative (Negative) 05/08/24 18:38 Urine Ketones Negative (Negative) 05/08/24 18:38 Urine Nitrite Negative (Negative) 05/08/24 18:38 Ur Leukocyte Esterase 1+ (Negative) H 05/08/24 18:38 Urine WBC (Auto) 0-5 /hpf (0-5) 05/08/24 18:38 Urine RBC (Auto) >20 /hpf (0-2) H 05/08/24 18:38 U Hyaline Cast (Auto) 0-2 /lpf (0-2) 05/08/24 18:38 U Epithel Cells (Auto) 0-2 /hpf (0-2) 05/08/24 18:38 Urine Bacteria (Auto) None Seen (None Seen) 05/08/24 18:38
[2024-05-09] MEDS ORDERED: fentaNYL citrate PF 100 MCG/2 ML VIAL ONE (10:07)
[2024-05-09] MEDS ORDERED: MIDAZOLAM HCL 1 MG/ML 2ML VIAL ONE (10:07)
[2024-05-09] MEDS ORDERED: fentaNYL citrate PF 100 MCG/2 ML VIAL IV PRN (10:28)
[2024-05-09] MEDS ORDERED: ATROPINE SULFATE 0.1 MG/ML 10ML SYR IV PRN (10:28)
[2024-05-09] MEDS ORDERED: DROPERIDOL 5 MG/2 ML VIAL IV PRN (10:28)
[2024-05-09] MEDS ORDERED: ePHEDrine sulfate 50 MG/ML AMP IV PRN (10:28)
--- NOTE | 2024-05-09 10:36 | Hospitalist Progress Note ---
Date of Service May 09, 2024 Assessment & Plan (1) Kidney stone: Plan: 68-year-old male with past med history of kidney stones more than 20 years ago, history of hyperlipidemia but not on medications presents with abdominal pain and found to be kidney stone and TRISTAN. Patient states about 11 days ago on Saturday went to [facility] because of the pain and found to have kidney stone and was discharged home on pain medications and again last Saturday a week ago went with the same problem and was discharged again and told to follow as outpatient. Today again had a lot of pain in lower abdomen with nausea and vomiting and he went to [facility] again was given fluids and pain medication and as there was no urology coverage until next Saturday,patient did not want to stay there for 4 days so he came here. CT scan was done at [facility]. As per patient CAT scan showed a 5 mm right ureteral stone. Patient states initially he had some blood in urine.. Denies fevers. Micturating okay. No burning micturition. Appetite is down. Not eating much. Currently has Pain in the umbilical region radiating to the back. When the pain is severe also having some chest discomfort. Denies any shortness of breath. And today also having bilateral calf pains. No headache. Sometimes gets dizziness. No blurred vision. No runny nose or sore throat but no cough. Currently hemodynamics are okay. Right ureteral stone H/O nephrolithiasis --KUB:Bilateral nephrolithiasis is seen, in addition there is a right ureteral stone. It is grossly similar to prior CT in position. --S/P right ureteral stent placement by Dr. Rasheed on 05/09/2024 Continue IV fluids, Flomax Pain control Appreciate urology input Acute kidney injury Cr 1.8 Unknown baseline Avoid nephrotoxic agents as able Monitor renal function Nonocclusive DVT of right lower extremity --Venous Doppler: Nonocclusive thrombus is in the distal right popliteal vein. No superficial venous thrombosis is identified. Continue IV heparin Transition to oral anticoagulation likely tomorrow Atypical chest pain Troponin x 2 negative Echo pending EKG showed no signs of acute ischemia Currently resolved Hyperlipidemia Currently not on meds Lipid panel within normal limits DVT Px IV heparin CODE STATUS Full code Admission and Anticipated Discharge Date Admission Date: May 08, 2024 Subjective Patient is seen and examined at bedside States having right flank pain associated with nausea today Leg pain is much improved No bleeding issues while on IV heparin Denies any chest pain, dyspnea, abdominal pain No other complaints Review of Systems Review of Systems: All systems reviewed & are unremarkable except as noted in Subjective Physical Exam Physical Exam: Physical Exam: Vitals signs as noted above General Appearance:Moderately built and nourished, no apparent distress Head: normocephalic, Atraumatic Eyes: normal inspection, EOMI Neck: supple, Trachea midline Respiratory/Chest: Normal breath sounds, CTA, No accessory muscle use Cardiovascular: S1, S2, No murmur Abdomen/GI:Soft, R flank mild tender, Bowel sounds present Extremities/Musculoskeletal:normal inspection, no edema Neurologic/Psych:AAOX3, grossly no focal neurological deficits Skin: normal color, warm Results & Data Results & Data Vital Signs (Past 12 Hours) Vital Signs Temp Pulse Pulse Resp BP Pulse Ox O2 Del Method 05/09/24 07:40 36.8 C 66 16 151/87 H 95 Room Air 05/09/24 06:59 66 05/09/24 03:01 37.1 C 64 16 152/83 H 95 Room Air 05/08/24 22:53 66 05/08/24 22:38 36.8 C 65 16 178/91 H 94 Room Air Laboratory Results Short CBC 05/08/24 05/09/24 Range/Units 18:06 06:10 WBC 10.44 8.47 (4.8-10.8) K/ul Hgb 16.3 14.4 (14.0-18.0) g/dl Hct 47.1 42.4 (42.0-52.0) % Plt Count 196 170 (130-400) K/uL BMP 05/08/24 05/09/24 18:06 06:10 Sodium 134 L 135 L Potassium 4.4 4.8 Chloride 101 106 Carbon Dioxide 27 22 BUN 17 18 Creatinine 1.86 H 1.83 H Glucose 104 H 113 H Calcium 9.5 8.3 L Liver Function 05/08/24 Range/Units 18:06 Total Bilirubin 1.0 (0.2-1.0) mg/dl AST 19 (13-39) U/L ALT 16 (7-52) U/L Alkaline Phosphatase 80 (34-104) U/L Albumin 4.2 (3.4-5.0) gm/dl Urine 05/08/24 Range/Units 18:38 Urine Color Yellow Urine Appearance Clear (Clear) Urine pH 6.0 (4.5-7.5) Ur Specific [place] 1.016 (1.000-1.030) Urine Protein 1+ H (Negative) Urine Glucose (UA) Negative (Negative)
--- NOTE | 2024-05-09 10:51 | Operative Report ---
PG Post Operative Report Pre & Post Diagnosis Operation Date: 05/09/24 09:35 Pre: right ureteral stone Post: right ureteral stone I identified the patient and participated in the time-out.: Yes Procedure Operation Date: 05/09/24 09:35 Actual Procedures p Cystoscopy(Not Applicable) - John Rasheed MD s Right Ureteral Stent Insertion (Right) - John Rasheed MD Surgeon John Rasheed MD Check Examiner none Estimated Blood Loss 0 Findings Consistent with Post-Op Diagnosis Specimens none Description of Procedure The patient was identified in the preoperative holding area, appropriate informed consents were reviewed and completed and the patient was transferred to the operative suite. Upon arrival, appropriate antibiotics and anesthesia were administered and the patient was placed in dorsal lithotomy position and prepped and draped in sterile fashion. To begin the case I passed a 22 [place] cystoscope with 30 degree lens. Inspecti on revealed a healthy-appearing urethra and a moderately enlarged prostate with some obstructive tissue. Inspection of the bladder was unremarkable with healthy appearing mucosa and ureteral orifices in orthotopic position. I turned my attention to the right UO and cannulated with a sensor wire and a 5 [place] open-ended catheter. The wire advanced the kidney without difficulty. Opacities were visualized within the kidney as well as the right ureter consistent with the stone seen previously. I then advanced a 6 [place] by 26 cm double-J stent over the wire. As the curl was deployed there was a clear drainage of murky urine through and around the stent. We saw good curl in the kidney and the bladder. His bladder was decompressed and he was reversed of anesthesia and taken the recovery room in stable condition peer there were no complications I attest to the content of the Intraoperative Record and any orders documented therein. Any exceptions are noted below.
--- NOTE | 2024-05-09 11:15 | Anesthesiology Progress Note ---
Date of Service May 09, 2024 Anesthesia Post Procedure Vital Signs Vital Signs: Temp Pulse Pulse Pulse Resp BP BP 05/09/24 11:05 36.4 C L 59 L 18 144/71 H 05/09/24 10:55 60 14 109/62 05/09/24 10:48 36.1 C L 62 14 115/60 05/09/24 07:40 36.8 C 66 16 151/87 H 05/09/24 06:59 66 05/09/24 03:01 37.1 C 64 16 152/83 H 05/08/24 22:53 66 05/08/24 22:38 36.8 C 65 16 178/91 H 05/08/24 22:15 66 16 05/08/24 19:00 65 22 135/86 05/08/24 18:42 65 24 158/82 H 05/08/24 18:40 65 05/08/24 17:42 36.6 C 65 18 171/83 H Pulse Ox O2 Del Method O2 Flow Rate 05/09/24 11:05 95 Room Air 05/09/24 10:55 94 Oxymask 4 05/09/24 10:48 94 Oxymask 6 05/09/24 07:40 95 Room Air 05/09/24 06:59 05/09/24 03:01 95 Room Air 05/08/24 22:53 05/08/24 22:38 94 Room Air 05/08/24 22:15 97 Room Air 05/08/24 19:00 93 Room Air 05/08/24 18:42 93 05/08/24 18:40 05/08/24 17:42 95 Room Air Pain Intensity Bilateral Flank: Pain Intensity: 2 Transfer of Care Handoff Completed per policy Notes Mental Status: alert / awake / arousable Patient Amnestic to Procedure: Yes Nausea / Vomiting: adequately controlled Pain: adequately controlled Airway Patency, RR, SpO2: stable & adequate BP & HR: stable & adequate Hydration State: stable & adequate Anesthetic Complications: no major complications apparent and Pt Satisfied with anesthetic care
[2024-05-09] MEDS ORDERED: PROPOFOL IV EMULSION 10 MG/ML 20 ML VIAL IV ONE (11:29)
--- NOTE | 2024-05-09 11:50 | Fluoroscopy Report ---
FL KUB CLINICAL HISTORY: RIGHT SIDE STENT TECHNIQUE: 1 views were obtained with the C-arm in the OR with the above procedure. Total fluoroscopy time was 3.5 seconds. Radiation dose was 1.06 mGy. Comparison: Comparison is made to abdomen radiographs 05/08/2024 FINDINGS/IMPRESSION: Intraoperative images were obtained of right stent placement. In the final image s, the stent is in satisfactory position. Please correlate with intraoperative fluoroscopy and operative report. ACT 112: Negative or not required by law. Electronically signed by: Gordo Kowalski M.D. 05/09/2024 11:49 AM
[2024-05-09] MEDS ORDERED: hydrALAZINE 10 MG TAB PO PRN ×2 (13:28→13:29)
[2024-05-09] MEDS: LACTATED RINGER'S 1,000 ML IV ONE (15:13)
[2024-05-09] MEDS: cefTRIAXone SODIUM 1,000 MG/50 ML BAG IV SCH (16:37)
[2024-05-09] MEDS: TAMSULOSIN HCL 0.4 MG CAP PO SCH (20:51)
[2024-05-10 07:10] LABS: Basophils # (auto) 0.06 K/uL (0.00-0.20); Basophils % (auto) 0.7 %; Eosinophils # (auto) 0.42 K/uL (0.00-0.50); Eosinophils % (auto) 4.8 %; Hematocrit (blood only) 43.8 % (42.0-52.0); Immature Granulocytes # (auto) 0.02 K/uL (0.01-0.20); Immature Granulocytes % (auto) 0.2 %; Lymphocytes # (auto) 2.92 K/uL (1.20-3.40); Mean Corpuscular Hemoglobin 29.7 pg (25.0-34.0); Mean Corpuscular Hgb Conc 34.2 g/dL (32.0-36.0); Mean Corpuscular Volume 86.7 fL (80.0-100.0); Mean Platelet Volume 9.9 fL (9.4-12.4); Monocytes # (auto) 1.18 K/uL (0.11-0.59); Monocytes % (auto) 13.3 %; Neutrophils # (auto) 4.24 K/uL (1.40-6.50); Platelet Count 187 K/uL (130-400); RDW Coefficient of Variation 12.3 % (11.5-14.5); RDW Standard Deviation 39.1 fL (36.4-46.3); Red Blood Count 5.05 M/uL (4.70-6.10); White Blood Count 8.84 K/ul (4.8-10.8)
[2024-05-10 07:28] LABS: BUN Creatinine Ratio 13.3 (10-20); Calcium 8.8 mg/dl (8.6-10.3); Creatinine Clr Calc Pharmacy 74.6 ml/min; Est GFR (African American) 78.1 ml/min; Est GFR (Non-African American) 67.4 ml/min; Potassium 4.4 mmol/L (3.5-5.1)
[2024-05-10 07:31] LABS: ANTI-Xa, UFH(UnfractionatedHep 0.39 IU/ml (0.3-0.7)
--- NOTE | 2024-05-10 08:55 | Urology Progress Note ---
Date of Service May 10, 2024 Assessment & Plan (1) Nephrolithiasis: Plan Postop day #1 status post right ureteral stent placement Relatively significant stone burden bilaterally Also with a DVT so he is now on a heparin drip I would like to proceed with stone treatment on his right side as soon as he is deemed medically stable and safe for this He does not need to stop anticoagulation for ureteroscopy so may be best to perform this while he is still on his heparin gtt. I would plan to treat his right side first and have a delayed treatment of his left side, perhaps several months down the road We will continue to follow and determine exact timing, this can occur as an ou tpatient unless he will be here for several more days Admission and Anticipated Discharge Date Admission Date: May 08, 2024 Subjective 68-year-old postop day #1 status post right ureteral stent placement He is extremely fatigued today but otherwise feels much better Much less pain than he had yesterday He remains on a heparin drip for his DVT His creatinine has improved substantially since stent placement He has a bit of blood in his urine but not severe More interested in trying to determine a long-term plan for treatment of his stones Physical Exam Constitutional: well developed and well nourished Respiratory: no respiratory distress Cardiovascular: Extremities: no pedal edema Gastrointestinal (Abdomen): Inspection/Auscultation: abdomen normal to inspection Results & Data Vital Signs (Past 12 Hours) Vital Signs Temp Pulse Pulse Pulse Resp BP Pulse Ox 05/10/24 08:42 37.1 C 56 L 16 161/80 H 97 05/10/24 06:51 51 L 05/10/24 03:24 36.6 C 58 L 18 117/68 96 05/09/24 23:13 63 05/09/24 22:52 36.8 C 64 16 159/70 H 95 O2 Del Method 05/10/24 08:42 Room Air 05/10/24 06:51 05/10/24 03:24 Room Air 05/09/24 23:13 05/09/24 22:52 Room Air PG Care Time/CCT Total # of Minutes Spent Total Time Spent with Patient: Total time spent is greater than 50% in coordination of care (as documented) at patient's floor/unit and/or counseling patient: Coding Level of Care Code 14849 SUB INP/OBS CARE 2/35MIN Diagnoses Nephrolithiasis N20.0
--- NOTE | 2024-05-10 13:14 | Hospitalist Progress Note ---
Date of Service May 10, 2024 Assessment & Plan (1) Kidney stone: Plan: 68-year-old male with past med history of kidney stones more than 20 years ago, history of hyperlipidemia but not on medications presents with abdominal pain and found to be kidney stone and TRISTAN. Patient states about 11 days ago on Saturday went to [facility] because of the pain and found to have kidney stone and was discharged home on pain medications and again last Saturday a week ago went with the same problem and was discharged again and told to follow as outpatient. Today again had a lot of pain in lower abdomen with nausea and vomiting and he went to [facility] again was given fluids and pain medication and as there was no urology coverage until next Saturday,patient did not want to stay there for 4 days so he came here. CT scan was done at [facility]. As per patient CAT scan showed a 5 mm right ureteral stone. Patient states initially he had some blood in urine.. Denies fevers. Micturating okay. No burning micturition. Appetite is down. Not eating much. Currently has Pain in the umbilical region radiating to the back. When the pain is severe also having some chest discomfort. Denies any shortness of breath. And today also having bilateral calf pains. No headache. Sometimes gets dizziness. No blurred vision. No runny nose or sore throat but no cough. Currently hemodynamics are okay. Right ureteral stone H/O nephrolithiasis --KUB:Bilateral nephrolithiasis is seen, in addition there is a right ureteral stone. It is grossly similar to prior CT in position. --S/P right ureteral stent placement by Dr. Rasheed on 05/09/2024 Continue Flomax, IV fluids Pain control Also on IV Rocephin Appreciate urology input Likely stone treatment in 1 to 2 days Acute kidney injury Cr 1.8>1.1 today Unknown baseline Avoid nephrotoxic agents as able Monitor renal function Resolved Nonocclusive DVT of right lower extremity --Venous Doppler: Nonocclusive thrombus is in the distal right popliteal vein. No superficial venous thrombosis is identified. Continue IV heparin Transition to oral anticoagulation as able Atypical chest pain Troponin x 2 negative Echo: Normal LV systolic function. EF 55 to 60%. Known dilated cardiac chambers. No significant valvular pathology. Normal left ventricular wall thickness. EKG showed no signs of acute ischemia resolved Hypertension Started on low-dose amlodipine Also on tamsulosin Monitor BP Hyperlipidemia Currently not on meds Lipid panel within normal limits DVT Px IV heparin CODE STATUS Full code Admission and Anticipated Discharge Date Admission Date: May 08, 2024 Subjective Patient is seen and examined at bedside Right flank pain much improved Reports having minimal dysuria, hematuria today Leg pain, swelling improving Denies any chest pain, dyspnea, abdominal pain No other complaints Review of Systems Review of Systems: All systems reviewed & are unremarkable except as noted in Subjective Physical Exam Physical Exam: Physical Exam: Vitals signs as noted above General Appearance:Moderately built and nourished, no apparent distress Head: normocephalic, Atraumatic Eyes: normal inspection, EOMI Neck: supple, Trachea midline Respiratory/Chest: Normal breath sounds, CTA, No accessory muscle use Cardiovascular: S1, S2, No murmur Abdomen/GI:Soft, R flank mild tender, Bowel sounds present Extremities/Musculoskeletal:normal inspection, no edema Neurologic/Psych:AAOX3, grossly no focal neurological deficits Skin: normal color, warm Results & Data Results & Data Vital Signs (Past 12 Hours) Vital Signs Temp Pulse Pulse Pulse Resp BP Pulse Ox 05/10/24 11:47 36.8 C 66 16 159/87 H 91 05/10/24 08:42 37.1 C 56 L 16 161/80 H 97 05/10/24 06:51 51 L 05/10/24 03:24 36.6 C 58 L 18 117/68 96 O2 Del Method 05/10/24 11:47 Room Air 05/10/24 08:42 Room Air 05/10/24 06:51 05/10/24 03:24 Room Air Laboratory Results Short CBC 05/10/24 Range/Units 06:52 WBC 8.84 (4.8-10.8) K/ul Hgb 15.0 (14.0-18.0) g/dl Hct 43.8 (42.0-52.0) % Plt Count 187 (130-400) K/uL BMP 05/10/24 06:52 Sodium 135 L Potassium 4.4 Chloride 103 Carbon Dioxide 28 BUN 15 Creatinine 1.13 D Glucose 121 H Calcium 8.8
[2024-05-10] MEDS: amLODIPine BESYLATE 5 MG TAB PO SCH (14:10)
[2024-05-10] MEDS: PHENAZOPYRIDINE HCL 100 MG TAB PO PRN (21:16)
[2024-05-10] MEDS ORDERED: Nursing to Pharmacy Communication SCH (21:30)
[2024-05-10 21:45] LABS: Hematocrit (blood only) 44.3 % (42.0-52.0); Hemoglobin 15.1 g/dl (14.0-18.0)
--- NOTE | 2024-05-11 06:15 | Electrocardiogram Report ---
Test Reason : Blood Pressure : / mmHG Vent. Rate : 058 BPM Atrial Rate : 058 BPM P-R Int : 172 ms QRS Dur : 094 ms QT Int : 432 ms P-R-T Axes : 045 -04 026 degrees QTc Int : 424 ms Sinus bradycardia Otherwise normal ECG When compared with ECG of 08-MAY-2024 23:10, No significant change was found Confirmed by Emiliano Rios ([id number]) on 05/11/2024 6:15:02 AM Referred By: REFERRED SELF Confirmed By:Emiliano Rios
[2024-05-11 09:20] LABS: BUN Creatinine Ratio 14.3 (10-20); Calcium 9.1 mg/dl (8.6-10.3); Creatinine Clr Calc Pharmacy 74.4 ml/min; Est GFR (African American) 78.9 ml/min; Est GFR (Non-African American) 68.1 ml/min; Potassium 4.3 mmol/L (3.5-5.1)
[2024-05-11 09:23] LABS: ANTI-Xa, UFH(UnfractionatedHep 0.38 IU/ml (0.3-0.7)
--- NOTE | 2024-05-11 13:07 | Hospitalist Progress Note ---
Date of Service May 11, 2024 Assessment & Plan (1) Kidney stone: Plan: 68-year-old male with past med history of kidney stones more than 20 years ago, history of hyperlipidemia but not on medications presents with abdominal pain and found to be kidney stone and TRISTAN. Right ureteral stone H/O nephrolithiasis --KUB:Bilateral nephrolithiasis is seen, in addition there is a right ureteral stone. It is grossly similar to prior CT in position. --S/P right ureteral stent placement by Dr. Rasheed on 05/09/2024 Continue Flomax, IV fluids Pain control Also on IV Rocephin Discussed with urology. Plan for definitive stone treatment tomorrow morning. N.p.o. from midnight. Acute kidney injury Cr 1.8>1.1 today Unknown baseline Avoid nephrotoxic agents as able Monitor renal function Resolved Nonocclusive DVT of right lower extremity Patient reported calf pain on admission. He reports decreased activity in the last 10 days prior to hospitalization due to ureteral stone --Venous Doppler: Nonocclusive thrombus is in the distal right popliteal vein. No superficial venous thrombosis is identified. Continue IV heparin Transition to Eliquis at discharge: 10 mg twice a day for 7 days followed by 5 mg twice a day. He will need to be on anticoagulation for at least 3 to 6 months. Atypical chest pain Troponin x 2 negative Echo: Normal LV systolic function. EF 55 to 60%. Known dilated cardiac chambers. No significant valvular pathology. Normal left ventricular wall thickness. EKG showed no signs of acute ischemia resolved Hypertension Started on low-dose amlodipine Also on tamsulosin Monitor BP Hyperlipidemia Currently not on meds Lipid panel within normal limits DVT Px IV heparin CODE STATUS Full code Time spent evaluating patient, direct bedside care, chart review, placing orders, interpretation of diagnostic studies, discussion with consultants, patient, and family members, as well as other required patient management activities is 45 minutes Please note the above document was generated using voice recognition software. It may contain grammatical, syntax or spelling errors. Any formal questions or concerns about the content, text or information contained within the body of this dictation should be directly addressed to the provider for clarification Admission and Anticipated Discharge Date Admission Date: May 08, 2024 Subjective Patient is seen and examined at bedside Right flank pain resolved No other complaints Review of Systems Review of Systems: All systems reviewed & are unremarkable except as noted in Subjective Physical Exam Physical Exam: Physical Exam: Vitals signs as noted above General Appearance:Moderately built and nourished, no apparent distress Head: normocephalic, Atraumatic Eyes: normal inspection, EOMI Neck: supple, Trachea midline Respiratory/Chest: Normal breath sounds, CTA, No accessory muscle use Cardiovascular: S1, S2, No murmur Abdomen/GI:Soft,, Bowel sounds present Extremities/Musculoskeletal:normal inspection, no edema Neurologic/Psych:AAOX3, grossly no focal neurological deficits Skin: normal color, warm Results & Data Results & Data Vital Signs (Past 12 Hours) Vital Signs Temp Pulse Pulse Pulse Resp BP Pulse Ox 05/11/24 11:27 36.6 C 60 15 137/83 95 05/11/24 07:56 52 L 05/11/24 07:38 36.7 C 68 15 117/72 90 05/11/24 04:09 36.7 C 56 L 16 127/72 91 O2 Del Method 05/11/24 11:27 Room Air 05/11/24 07:56 05/11/24 07:38 Room Air 05/11/24 04:09 Room Air
[2024-05-12 06:52] LABS: Basophils # (auto) 0.09 K/uL (0.00-0.20); Eosinophils # (auto) 0.54 K/uL (0.00-0.50); Eosinophils % (auto) 5.7 %; Hematocrit (blood only) 46.8 % (42.0-52.0); Immature Granulocytes # (auto) 0.03 K/uL (0.01-0.20); Immature Granulocytes % (auto) 0.3 %; Lymphocytes # (auto) 3.08 K/uL (1.20-3.40); Lymphocytes % (auto) 32.7 %; Mean Corpuscular Hemoglobin 29.4 pg (25.0-34.0); Mean Corpuscular Hgb Conc 34.2 g/dL (32.0-36.0); Mean Corpuscular Volume 85.9 fL (80.0-100.0); Mean Platelet Volume 9.6 fL (9.4-12.4); Monocytes # (auto) 0.68 K/uL (0.11-0.59); Monocytes % (auto) 7.2 %; Neutrophils % (auto) 53.1 %; Platelet Count 285 K/uL (130-400); RDW Coefficient of Variation 12.2 % (11.5-14.5); RDW Standard Deviation 38.4 fL (36.4-46.3); Red Blood Count 5.45 M/uL (4.70-6.10); White Blood Count 9.42 K/ul (4.8-10.8)
[2024-05-12 07:23] LABS: ANTI-Xa, UFH(UnfractionatedHep 0.36 IU/ml (0.3-0.7)
[2024-05-12 07:32] LABS: Calcium 9.2 mg/dl (8.6-10.3); Creatinine Clr Calc Pharmacy 69.3 ml/min; Est GFR (African American) 72.6 ml/min; Est GFR (Non-African American) 62.6 ml/min; Potassium 4.2 mmol/L (3.5-5.1)
--- NOTE | 2024-05-12 09:29 | Urology Progress Note ---
Date of Service May 12, 2024 Assessment & Plan (1) Nephrolithiasis: Plan 68yo/M admitted with right ureteral stone and DVT. He is s/p right ureteral stent placement on 05/09. - Afebrile and hemodynamically stable - Labs today show no leukocytosis and normal renal function - Continues on heparin drip for DVT - We discussed definitive stone treatment today - he is agreeable to proceeding. - Will plan to proceed to OR today for cystoscopy, right retrograde pyelogram, right ureteroscopy, laser lithotripsy/stone treatment, right ureteral stent exchange with Dr. Rasheed. - Risks and benefits to be reviewed with patient by Dr. Rasheed. - Keep NPO. - Covered with scheduled IV ceftriaxone. - Urology will follow. Admission and Anticipated Discharge Date Admission Date: May 08, 2024 Subjective Pt seen at bedside this AM Awake, resting in bed on arrival No acute distress Denies f/c/n/v Tolerating the ureteral stent with minimal bother Voiding ok Has been NPO Review of Systems Constitutional: as per Subjective / HPI Gastrointestinal: as per Subjective / HPI Genitourinary: + as per Subjective / HPI Physical Exam Constitutional: no acute distress Respiratory: no respiratory distress and no labored breathing Neurologic: moves all extremities and awake Psychiatric: A+Ox3, euthymic affect Results & Data Vital Signs (Past 12 Hours) Vital Signs Temp Pulse Pulse Pulse Resp BP BP 05/12/24 07:44 36.4 C L 58 L 20 135/85 05/12/24 07:20 05/12/24 07:00 52 L 05/12/24 00:03 36.8 C 60 18 123/69 05/11/24 21:53 60 Pulse Ox O2 Del Method 05/12/24 07:44 95 Room Air 05/12/24 07:20 Room Air 05/12/24 07:00 05/12/24 00:03 94 Room Air 05/11/24 21:53 PG Care Time/CCT Total # of Minutes Spent Total Time Spent with Patient: Total time spent is greater than 50% in coordination of care (as documented) at patient's floor/unit and/or counseling patient: Coding Level of Care Code 78951 SUB INP/OBS CARE 2/35MIN Diagnoses Nephrolithiasis N20.0
[2024-05-12] MEDS ORDERED: LIDOCAINE 2% 2 ML VIAL/AMP(20MG/ML) INFIL ONE (13:10)
[2024-05-12] MEDS ORDERED: MIDAZOLAM HCL 1 MG/ML 2ML VIAL ONE (13:10)
[2024-05-12] MEDS ORDERED: fentaNYL citrate PF 100 MCG/2 ML VIAL ONE (13:10)
[2024-05-12] MEDS ORDERED: ONDANSETRON INJ 2 MG/ML 2 ML VIAL ONE (13:10)
[2024-05-12] MEDS ORDERED: PROPOFOL IV EMULSION 10 MG/ML 20 ML VIAL IV ONE (13:10)
[2024-05-12] MEDS: LACTATED RINGER'S 1,000 ML IV SCH (13:19)
--- NOTE | 2024-05-12 13:23 | Hospitalist Progress Note ---
Date of Service May 12, 2024 Assessment & Plan (1) Kidney stone: Plan: 68-year-old male with past med history of kidney stones more than 20 years ago, history of hyperlipidemia but not on medications presents with abdominal pain and found to be kidney stone and TRISTAN. Right ureteral stone H/O nephrolithiasis --KUB:Bilateral nephrolithiasis is seen, in addition there is a right ureteral stone. It is grossly similar to prior CT in position. --S/P right ureteral stent placement by Dr. Rasheed on 05/09/2024 Continue Flomax, IV fluids Pain control Also on IV Rocephin As per urology Patient to undergo laser lithotripsy, right uteroscopy and stent exchange today. Monitor overnight Acute kidney injury Cr 1.8>1.1 today Unknown baseline Avoid nephrotoxic agents as able Monitor renal function Resolved Nonocclusive DVT of right lower extremity Patient reported calf pain on admission. He reports decreased activity in the last 10 days prior to hospitalization due to ureteral stone --Venous Doppler: Nonocclusive thrombus is in the distal right popliteal vein. No superficial venous thrombosis is identified. Continue IV heparin Transition to Eliquis from tonight: 10 mg twice a day for 7 days followed by 5 mg twice a day. He will need to be on anticoagulation for at least 3 months. Atypical chest pain Troponin x 2 negative Echo: Normal LV systolic function. EF 55 to 60%. Known dilated cardiac chambers. No significant valvular pathology. Normal left ventricular wall thickness. EKG showed no signs of acute ischemia resolved Hypertension Started on low-dose amlodipine Also on tamsulosin Monitor BP Hyperlipidemia Currently not on meds Lipid panel within normal limits DVT Px eliquis CODE STATUS Full code Time spent evaluating patient, direct bedside care, chart review, placing orders, interpretation of diagnostic studies, discussion with consultants, patient, and family members, as well as other required patient management activities is 45 minutes Please note the above document was generated using voice recognition software. It may contain grammatical, syntax or spelling errors. Any formal questions or concerns about the content, text or information contained within the body of this dictation should be directly addressed to the provider for clarification Admission and Anticipated Discharge Date Admission Date: May 08, 2024 Subjective Patient seen and examined at bedside. Comfortable; not in distress. Denies fever, chills, chest pain, shortness of breath, abdominal pain or urinary symptoms. No significant overnight events Review of Systems Review of Systems: All systems reviewed & are unremarkable except as noted in Subjective Physical Exam Physical Exam: Physical Exam: Vitals signs as noted above General Appearance:Moderately built and nourished, no apparent distress Head: normocephalic, Atraumatic Eyes: normal inspection, EOMI Neck: supple, Trachea midline Respiratory/Chest: Normal breath sounds, CTA, No accessory muscle use Cardiovascular: S1, S2, No murmur Abdomen/GI:Soft,, Bowel sounds present Extremities/Musculoskeletal:normal inspection, no edema Neurologic/Psych:AAOX3, grossly no focal neurological deficits Skin: normal color, warm Results & Data Results & Data Vital Signs (Past 12 Hours) Vital Signs Temp Pulse Pulse Pulse Resp BP BP 05/12/24 13:09 36.8 C 83 20 193/96 H 05/12/24 11:44 36.8 C 59 L 18 147/88 H 05/12/24 07:44 36.4 C L 58 L 20 135/85 05/12/24 07:20 05/12/24 07:00 52 L Pulse Ox O2 Del Method 05/12/24 13:09 92 Room Air 05/12/24 11:44 93 Room Air 05/12/24 07:44 95 Room Air 05/12/24 07:20 Room Air 05/12/24 07:00
--- NOTE | 2024-05-12 13:24 | Anesthesiology Consultation ---
Date of Service May 12, 2024 Assessment & Plan Chart Review Chart Review: Acceptable Risk for Surgery and Patient NOT seen in Pre Admission Testing Consults Requested none ASA ASA3 Proposed Anesthesia Anesthesia Type: General Risk / Benefits Reviewed With: PT / POA / Parent / Guardian, Accepts Plan and Informed Consent Obtained History Surgery Operation Date: 05/09/24 09:35 Proposed Procedures p Cystoscopy - John Rasheed MD s Ureteral Stent Insertion/Removal(Right) - John Rasheed MD Operation Date: 05/12/24 13:00 Proposed Procedures p Right Ureteroscopy, Laser Lithotripsy, Stent Exchange - John Rasheed MD Height/Weight Height: 5 ft 9 in Weight: 96.2 kg Allergies Allergy/AdvReac Type Severity Reaction Status Date / Time pollen extracts Allergy Unknown "Seasonal Verified 05/08/24 21:44 allergies" -RUNNY NOSE, WATERY EYES, SNEEZE Medications Home Medications Medication Instructions Recorded Confirmed Last Taken hydrocodone 5 mg-acetaminophen 325 1 tab PO Q6 PRN Pain 05/08/24 05/08/24 05/08/24 16:00 mg tablet ondansetron 4 mg disintegrating 4 mg PO Q6 PRN Nausea 05/08/24 05/08/24 Unknown tablet tamsulosin 0.4 mg capsule 0.4 mg PO DAILY PRN .. 05/08/24 05/08/24 Unknown apixaban 5 mg tablet (Eliquis) 5 mg PO BID #74 tabs 05/11/24 Unknown Active Medications Generic Name Dose Route Start Last Admin Trade Name Freq PRN Reason Stop Dose Admin Amlodipine Besylate 2.5 mg 05/10/24 11:15 05/12/24 07:19 Amlodipine Besylate 5 Mg Tab PO 06/09/24 11:14 2.5 mg QAM CORNELIO Administration Heparin Sodium/Dextrose 25,000 units in 500 mls @ 30 mls/hr 05/08/24 23:15 05/12/24 12:23 Heparin Sodium/Dextrose IV 05/12/24 19:00 1,500 units/hr .[id number] CORNELIO 30 mls/hr Administration Protocol 1,500 UNITS/HR Ceftriaxone Sodium 1,000 mg in 50 mls @ 100 mls/hr 05/09/24 17:00 05/11/24 18:28 Rocephin IV 05/14/24 16:59 Infused Q24H CORNELIO Infusion Lactated Ringer's 1,000 mls @ 15 mls/hr 05/12/24 13:30 05/12/24 13:19 Lr IV 06/11/24 13:29 15 mls/hr .Q24H CORNELIO Administration Phenazopyridine HCl 100 mg 05/09/24 09:02 05/10/24 21:16 Phenazopyridine Hcl 100 Mg Tab PO 06/08/24 08:50 100 mg TID PRN Administration Dysuria Tamsulosin HCl 0.4 mg 05/09/24 21:00 05/11/24 20:29 Tamsulosin Hcl 0.4 Mg Cap PO 06/08/24 20:59 0.4 mg HS CORNELIO Administration NPO Date Last Intake of Fluids: 05/11/24 Time Last Intake of Fluids: 23:00 Date Last Intake of Solids: 05/11/24 Time Last Intake of Solids: 23:00 Past Medical History Medical History (Updated 05/09/24 @ 20:07 by Katheryn Mckeon MD) DVT (deep venous thrombosis) Kidney stone Nephrolithiasis Exercise / Class Metabolic Activity 1 > 8 Run/Swim/Ski/Tennis Past Anesthesia History No Hx of Anesthesia Complications and No Family Hx of Anesthesia Complications Social History Smoking Status: Never smoker Hx Alcohol Use: Yes Alcohol type: beer alcohol intake frequency: a few times a month Hx Substance Use: No substance use type: does not use Review of Systems ROS Unobtainable: All systems reviewed & are unremarkable except as noted in HPI & below Physical Exam Vital Signs Last Vital Signs Temp 36.8 C 05/12/24 13:09 Pulse 83 05/12/24 13:09 Resp 20 05/12/24 13:09 BP 193/96 H 05/12/24 13:09 Pulse Ox 92 05/12/24 13:09 O2 Del Method Room Air 05/12/24 13:09 O2 Flow Rate 2 05/09/24 11:15 ENMT Mouth: no TMJ abnormality and no dental bridge Thyromental Distance: > or= 3.5 Finger Breadths Mallampati Class: III Neck normal visual inspection, trachea midline and + thick neck; neck extension not limited Respiratory normal respiratory effort Auscultation: lungs clear to auscultation bilaterally Cardiovascular Rate/Rhythm: regular rate and regular rhythm Heart Sounds: no murmur Musculoskeletal Spine: normal cervical ROM Extremities: full ROM of extremities Neurologic moves all extremities Psychiatric Orientation: alert and oriented x 3 Testing Laboratory Results 05/12/24 06:33 05/12/24 06:33 PT 10.4 Seconds (9.0-12.0) 05/08/24 18:06 INR 1.0 (0.9-1.1) 05/08/24 18:06 APTT 27 Seconds (21-31) 05/08/24 18:06 Urine Color Yellow 05/08/24 18:38 Urine Appearance Clear (Clear) 05/08/24 18:38 Urine pH 6.0 (4.5-7.5) 05/08/24 18:38 Ur Specific [place] 1.016 (1.000-1.030) 05/08/24 18:38 Urine Protein 1+ (Negative) H 05/08/24 18:38 Urine Glucose (UA) Negative (Negative) 05/08/24 18:38 Urine Ketones Negative (Negative) 05/08/24 18:38 Urine Nitrite Negative (Negative) 05/08/24 18:38 Ur Leukocyte Esterase 1+ (Negative) H 05/08/24 18:38 Urine WBC (Auto) 0-5 /hpf (0-5) 05/08/24 18:38 Urine RBC (Auto) >20 /hpf (0-2) H 05/08/24 18:38 U Hyaline Cast (Auto) 0-2 /lpf (0-2) 05/08/24 18:38 U Epithel Cells (Auto) 0-2 /hpf (0-2) 05/08/24 18:38 Urine Bacteria (Auto) None Seen (None Seen) 05/08/24 18:38 Electrocardiogram Date: 05/10/24 Sinus bradycardia Otherwise normal ECG When compared with ECG of 08-MAY-2024 23:10, No significant change was found Confirmed by Emiliano Rios ([id number]) on 05/11/2024 6:15:02 AM Echocardiogram Date: 05/09/24 EF: 55-60 LV Function: normal
[2024-05-12] MEDS ORDERED: ATROPINE SULFATE 0.1 MG/ML 10ML SYR IV PRN (13:26)
[2024-05-12] MEDS ORDERED: ePHEDrine sulfate 50 MG/ML AMP IV PRN (13:26)
[2024-05-12] MEDS ORDERED: ONDANSETRON INJ 2 MG/ML 2 ML VIAL IV PRN (13:26)
[2024-05-12] MEDS ORDERED: SODIUM CHLORIDE 0.9% PF INJ 10 ML VIAL ONE (13:49)
[2024-05-12] MEDS ORDERED: ePHEDrine sulfate 50 MG/ML AMP ONE (13:49)
--- NOTE | 2024-05-12 14:27 | Operative Report ---
PG Post Operative Report Pre & Post Diagnosis Operation Date: 05/12/24 13:00 Pre-Op Diagnosis: Right Ureteral and Kidney Stones Post-Op Diagnosis: Right Ureteral and Kidney Stones I identified the patient and participated in the time-out.: Yes Procedure Operation Date: 05/12/24 13:00 Actual Procedures p Cystoscopy,Ureteroscopy,Laser Lithotripsy,Right Stent Exchange(Right) - John Rasheed MD Surgeon John Rasheed MD Evaporator Helper none Estimated Blood Loss 0 Findings Consistent with Post-Op Diagnosis Specimens none Description of Procedure The patient was identified in the preoperative holding area, appropriate informed consents were reviewed and completed and the patient was transferred to the operative suite. Upon arrival, appropriate antibiotics and anesthesia were administered and the patient was placed in dorsal lithotomy position and prepped and draped in sterile fashion. To begin the case I passed 21 [place] cystoscope with 30 degree lens and visual chief hydroelectric station operator peer inspection revealed a healthy-appearing urethra and moderately enlarged prostate. The stent was easily identified protruding from his right orifice and the distal aspect of the stent was grasped and withdrawn to the meatus. I intubated with a sensor wire which advanced the kidney without difficulty. I then reentered the bladder with a semirigid ureteroscope and guided this into the right ureter. Several centimeters above the UO I encountered a stone within the lumen of the ureter. I used a 200 m laser fiber to fragment this into numerous small fragments and irrigate these fragments out of the ureter. I then utilized the scope to introduce a second wire into the kidney. I placed a ureteral access sheath at the proximal ureter. I passed a flexible ureteroscope into the kidney and performed full renoscopy. He had numerous stones. The larger stones were in the midpole/renal pelvis. I was able to push these into a posterior calyx and begin fragmentation with a 200 m fiber. He had Tera's plaques in the upper middle and lower pole. I treated these but calm, cautiously given his current anticoagulation. I then treated stones in the extreme upper pole and upper midportion of the kidney. I performed repeat renoscopy and found no large retained fragments. I performed a careful exit ureteroscopy and confirmed a healthy-appearing ureter without large stones. A new 6 [place] by 26 cm double-J stent was placed, his bladder was drained and the case was concluded. There were no complications I attest to the content of the Intraoperative Record and any orders documented therein. Any exceptions are noted below.
[2024-05-12] MEDS: fentaNYL citrate PF 100 MCG/2 ML VIAL IV PRN (14:57)
[2024-05-12] MEDS: HYDROmorphone INJ 0.5 MG/0.5 ML SYR IV PRN (15:17)
[2024-05-12] MEDS: HYDROmorphone INJ 2 MG/ML SYR/VIAL ONE (15:17)
--- NOTE | 2024-05-12 15:53 | Anesthesiology Progress Note ---
Date of Service May 12, 2024 Anesthesia Post Procedure Vital Signs Vital Signs: Temp Pulse Pulse Pulse Pulse Resp BP 05/12/24 15:45 37 C 60 17 167/97 H 05/12/24 15:35 60 24 163/94 H 05/12/24 15:25 61 20 183/87 H 05/12/24 15:15 61 25 H 175/93 H 05/12/24 15:05 64 29 H 176/91 H 05/12/24 14:55 65 14 182/107 H 05/12/24 14:45 68 21 165/99 H 05/12/24 14:35 67 18 174/97 H 05/12/24 14:26 36.1 C L 67 19 177/99 H 05/12/24 13:09 36.8 C 83 20 193/96 H 05/12/24 11:44 36.8 C 59 L 18 05/12/24 07:44 36.4 C L 58 L 20 05/12/24 07:20 05/12/24 07:00 52 L 05/12/24 00:03 36.8 C 60 18 123/69 05/11/24 21:53 60 05/11/24 19:55 36.9 C 67 18 149/70 H BP Pulse Ox O2 Del Method O2 Flow Rate 05/12/24 15:45 93 Nasal Cannula 2 05/12/24 15:35 97 Nasal Cannula 2 05/12/24 15:25 93 Room Air 05/12/24 15:15 94 Room Air 05/12/24 15:05 99 Room Air 05/12/24 14:55 97 Room Air 05/12/24 14:45 97 Oxymask 5 05/12/24 14:35 98 Oxymask 5 05/12/24 14:26 98 Oxymask 5 05/12/24 13:09 92 Room Air 05/12/24 11:44 147/88 H 93 Room Air 05/12/24 07:44 135/85 95 Room Air 05/12/24 07:20 Room Air 05/12/24 07:00 05/12/24 00:03 94 Room Air 05/11/24 21:53 05/11/24 19:55 93 Room Air Pain Intensity Bilateral Flank: Pain Intensity: 8 Transfer of Care Handoff Completed per policy Notes Mental Status: alert / awake / arousable Patient Amnestic to Procedure: Yes Nausea / Vomiting: adequately controlled Pain: adequately controlled Airway Patency, RR, SpO2: stable & adequate BP & HR: stable & adequate Hydration State: stable & adequate Anesthetic Complications: no major complications apparent
[2024-05-12] MEDS: MoRPHine SULFATE 4 MG/ML 1 ML CARP\\VIAL IV PRN (16:32)
[2024-05-12] MEDS: APIXABAN 5 MG TABLET PO SCH (20:44)
[2024-05-13 06:20] LABS: BUN Creatinine Ratio 15.3 (10-20); Calcium 8.8 mg/dl (8.6-10.3); Creatinine Clr Calc Pharmacy 70.5 ml/min; Est GFR (African American) 74.1 ml/min; Est GFR (Non-African American) 63.9 ml/min; Potassium 4.1 mmol/L (3.5-5.1)
[2024-05-13 08:29] LABS: ANTI-Xa, UFH(UnfractionatedHep > 1.50 IU/ml (0.3-0.7)
--- NOTE | 2024-05-13 10:35 | Fluoroscopy Report ---
INTRAOPERATIVE RADIOGRAPH CLINICAL HISTORY: Right ureteral stent placement. Fluoro time: 11 seconds Ka,r: 2.94 mGy FINDINGS: A single spot fluoroscopic image of the right upper quadrant is correlated with abdominal C T dated 05/08/2024. The image shows the proximal end of a right ureteral stent in appropriate position. IMPRESSION: Intraoperative image from a right ureteral stent placement procedure. Electronically signed by: Linwood Gutiérrez M.D. 05/13/2024 10:33 AM
--- NOTE | 2024-05-13 12:37 | Urology Progress Note ---
Date of Service May 13, 2024 Assessment & Plan (1) Nephrolithiasis: Plan - POD #1 s/p Cystoscopy, Right Ureteroscopy, Laser Lithotripsy, Right Stent Exchange - Tolerating the stent with minimal -moderate bother - Afebrile and hemodynamically stable - Labs reviewed - creatinine 1.18 - Voiding spontaneously, continue to monitor - Okay to d/c from perspective when medically stable - Recommend d/c with Tamsulosin, prn Pyridium and prn Oxybutynin and pain medication for stent management - Will arrange outpatient follow-up for stent removal. - Expected clinical course reviewed, all questions answered - will sign-off. Please call with any further questions or concerns. Admission and Anticipated Discharge Date Admission Date: May 08, 2024 Subjective Pt seen at bedside today Awake, resting in bed on arrival No acute distress Tolerating the stent with moderate bother Has some flank pain and dysuria with voiding No f/c/n/v No hematuria Review of Systems Constitutional: as per Subjective / HPI Gastrointestinal: as per Subjective / HPI Genitourinary: + as per Subjective / HPI Physical Exam Constitutional: no acute distress Respiratory: no respiratory distress and no labored breathing Neurologic: moves all extremities and awake Psychiatric: A+Ox3, euthymic affect Results & Data Vital Signs (Past 12 Hours) Vital Signs Temp Pulse Pulse Pulse Resp BP BP 05/13/24 11:50 66 05/13/24 11:27 36.6 C 64 18 173/89 H 05/13/24 07:56 36.7 C 68 16 144/77 H 05/13/24 03:14 36.6 C 73 18 107/61 Pulse Ox O2 Del Method 05/13/24 11:50 05/13/24 11:27 97 Room Air 05/13/24 07:56 95 Room Air 05/13/24 03:14 98 Room Air PG Care Time/CCT Total # of Minutes Spent Total Time Spent with Patient: Total time spent is greater than 50% in coordination of care (as documented) at patient's floor/unit and/or counseling patient: Coding Level of Care Code 50934 SUB INP/OBS CARE 2/35MIN Diagnoses Nephrolithiasis N20.0
[2024-05-13] MEDS ORDERED: oxyBUTYnin chloride 5 MG TAB PO PRN (13:26)
--- NOTE | 2024-05-13 14:20 | Discharge Summary ---
Discharge Summary Date of Service May 13, 2024 Principal Dx & Hospital Course #1 = Principal Diagnosis (1) Kidney stone: (2) Hypertension: (3) DVT (deep venous thrombosis): (4) Colic, ureteral: Plan Patient was admitted to the hospital. Seen by urology.He was given IV fluid as well as pain medications. Urology took the patient for cystoscopy and laser lithotripsy and right stent exchange. Postprocedure the patient was sore but was steadily improving. Additionally it was noted the patient had a lower extremity DVT. This most likely due to the fact that the patient was relatively immobilized due to his pain associated with his kidney stones. Thus it was presumed that this is a provoked DVT due to immobility. He was started on Eliquis for treatment. He will need a 3-month course of treatment but then after he is ambulatory and active Eliquis can be discontinued after 3 months. Of treatment. Postprocedure he was tolerating his diet. He was up and ambulating. Urology coordinate outpatient follow-up with him. He can return to home and follow-up with his PCP and urologist. Notes For Next Care Provider Follow-up on hypertension Medication Changes From Visit Eliquis started for DVT Norvasc started for hypertension Admission HPI Per Admitting Provider 68-year-old male with past med history of kidney stones more than 20 years ago, history of hyperlipidemia but not on medications presents with abdominal pain and found to be kidney stone and TRISTAN. Patient states about 11 days ago on Saturday went to [facility] because of the pain and found to have kidney stone and was discharged home on pain medications and again last Saturday a week ago went with the same problem and was discharged again and told to follow as outpatient. Today again had a lot of pain in lower abdomen with nausea and vomiting and he went to [facility] again was given fluids and pain medication and as there was no urology coverage until next Saturday,patient did not want to stay there for 4 days so he came here. CT scan was done at [facility]. As per patient CAT scan showed a 5 mm right ureteral stone. Patient states initially he had some blood in urine.. Denies fevers. Micturating okay. No burning micturition. Appetite is down. Not eating much. Currently has Pain in the umbilical region radiating to the back. When the pain is severe also having some chest discomfort. Denies any shortness of breath. And today also having bilateral calf pains. No headache. Sometimes gets dizziness. No blurred vision. No runny nose or sore throat but no cough. Currently hemodynamics are okay. Past medical history. As mentioned above past surgical history. knee scopes. Appendectomy. Social history. No smoking. No alcohol. No drug use. Family history. Both grandma's father's had CHF. Both her parents had kidney stones. Both parents lived into their 90s. Discharge Exam Constitutional: Alert HEENT: Mucous membranes moist. Lungs: Clear to auscultation, decreased, no wheezes rales or rhonchi CV: S1-S2, regular Abdomen: Soft, nontender, nondistended, mild flank tenderness Extremities: No significant edema Neuro: No focal deficits Psych: Cooperative, normal mood Updated Medication List Medication Instructions Recorded Confirmed Type hydrocodone 5 mg-acetaminophen 325 1 tab PO Q6 PRN Pain 05/08/24 05/08/24 History mg tablet ondansetron 4 mg disintegrating 4 mg PO Q6 PRN Nausea 05/08/24 05/08/24 History tablet tamsulosin 0.4 mg capsule 0.4 mg PO DAILY PRN .. 05/08/24 05/08/24 History apixaban 5 mg tablet (Eliquis) 5 mg PO BID #74 tabs 05/11/24 Rx amlodipine 5 mg tablet 5 mg PO QAM 30 days #30 tabs 05/13/24 Rx oxybutynin chloride 5 mg tablet 5 mg PO BID PRN bladder spasms #20 05/13/24 Rx tabs Hospital Stay Data Consultations 05/08/24 19:29 ED Decision to Admit Stat 05/08/24 19:53 Consult Urology Stat Procedures Performed Operation Date: 05/12/24 13:00 Actual Procedures p Cystoscopy,Ureteroscopy,Laser Lithotripsy(Right) - John Rasheed MD s ,Right Stent Exchange(Right) - John Rasheed MD Diagnostic Imagining Performed 05/08/24 19:52 US venous doppler LE BI Stat 05/09/24 FL KUB Routine 05/12/24 12:18 FL retrograde includes kub Routine reviewed imaging, laboratory and diagnostic studies. Pertinent findings as below. Refer to the operative report basic metabolic profile stable Creatinine 1.1 Pending Results Patient Have Any Pending Studies at Discharge: No Discharge Instructions Given to Patient (Per Discharging Provider) You were found to have clot in your right leg. Please take Eliquis as follows: 1) Take 2 tablets(10mg) twice a day for 7 days(Till morning dose of May 18, 2024) 2) Then, Take 1 tablet(5mg) twice a day You will need to be on anticoagulation for next 3 months. You will need repeat scan(venous duplex) prior to discontinuation of anticoagulation Total Time Total Time Spent Total Time Spent (In Minutes): 33
[2024-05-13 15:19] VITALS: RESP 16; TEMP 99.1; O2SAT 94
[2024-05-13] MEDS: ONDANSETRON INJ 2 MG/ML 2 ML VIAL IV PRN (15:39)
[2024-05-13 15:51] VITALS: BP 144/77
[2024-05-13 16:10] VITALS: PULSE 73
== END 2024-05-13 16:53 | disposition home or self-care (01) | DRG 660 ==
LOC: ED 17:51 → SUATTDRO 20:51 → 2N 20:51